=== PATIENT | male | born 1955 | race Caucasian/White ===

== ENCOUNTER 2018-08-02 07:51 | Emergency (ER) | payer BC ==
[2018-08-02 08:17] VITALS: BP 109/68
--- NOTE | 2018-08-02 08:49 | RAD ---
HISTORY: left foot pain COMPARISONS: None VIEWS: 3 , Frontal, lateral, and oblique views of the left foot FINDINGS: BONE DENSITY: Normal. BONES: There is no displaced fracture. There are small posterior and plantar calcaneal enthesophytes. 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 ALIGNMENT: There is no dislocation. SOFT TISSUES: Unremarkable. OTHER FINDINGS: None. IMPRESSION: MILD DEGENERATIVE CHANGES. NO ACUTE OSSEOUS INJURY. IF SYMPTOMS PERSIST, RECOMMEND REPEAT IMAGING.
--- NOTE | 2018-08-02 08:59 | UC ---
Lower Extremity/Ankle HPI - HPI Summary HPI Summary: left foot pain x 2 days + redness, swelling of the left foot, woke up with these symptoms no known injury ,no hx of gout no fever, no chills - History of Current Complaint Chief Complaint: UCLowerExtremity Stated Complaint: LEFT FOOT/ANKLE COMPLAINT Time Seen by Provider: 08/02/18 08:05 Hx Obtained From: Patient Onset/Duration: Gradual Onset, Lasting Days - 2, Still Present Severity Initially: Moderate Severity Currently: Moderate Pain Intensity: 1 Aggravating Factor(s): Standing, Ambulation Alleviating Factor(s): Rest, Elevation Able to Bear Weight: Yes - Allergies/Home Medications Allergies/Adverse Reactions: Allergies Allergy/AdvReac Type Severity Reaction Status Date / Time No Known Allergies Allergy Verified 08/02/18 08:10 PMH/Surg Hx/FS Hx/Imm Hx Previously Healthy: Yes - Surgical History Surgical History: Yes Surgery Procedure, Year, and Place: appy, gallbladder. hernia - Family History Known Family History: Positive: Hypertension - Social History Alcohol Use: Occasionally Alcohol Amount: once/month Substance Use Type: None Smoking Status (MU): Never Smoked Tobacco Review of Systems Constitutional: Negative Skin: Negative Eyes: Negative ENT: Negative Respiratory: Negative Cardiovascular: Negative Is Patient Immunocompromised?: No All Other Systems Reviewed And Are Negative: Yes Physical Exam Triage Information Reviewed: Yes Appearance: Well-Appearing, No Pain Distress, Well-Nourished Vital Signs: Initial Vital Signs Temp 97.7 F 08/02/18 08:11 Pulse 64 08/02/18 08:11 Resp 16 08/02/18 08:11 BP 109/68 08/02/18 08:11 Pulse Ox 98 08/02/18 08:11 Vital Signs Reviewed: Yes Eyes: Positive: Conjunctiva Clear ENT: Positive: Normal ENT inspection, Hearing grossly normal, Pharynx normal Neck: Positive: Supple, Nontender, No Lymphadenopathy Respiratory: Positive: Chest non-tender, Lungs clear, Normal breath sounds Cardiovascular: Positive: RRR, No Murmur, Pulses Normal Abdominal Exam: Normal Skin: Positive: Other - left foot: + swelling, + erythema, tender to touch, Diagnostics - Laboratory Diagnostic Studies Completed/Ordered: xray left foot: IMPRESSION: MILD DEGENERATIVE CHANGES. NO ACUTE OSSEOUS INJURY. IF SYMPTOMS PERSIST, RECOMMEND REPEAT. IMAGING. Lower Extremity Course/Dx - Differential Dx/Diagnosis Provider Diagnoses: cellulitis left foot Discharge - Sign-Out/Discharge Documenting (check all that apply): Patient Departure All imaging exams completed and their final reports reviewed: Yes - Discharge Plan Condition: Stable Disposition: HOME Prescriptions: Cephalexin CAP* [Keflex CAP*] 500 mg PO TID #30 cap Patient Education Materials: Cellulitis (ED) Referrals: Mariella Cleary MD [Primary Care Provider] - 5 Days - Billing Disposition and Condition Condition: STABLE Disposition: Home
== END 2018-08-02 08:56 | disposition home or self-care (01) ==
LOC: UCCORT 07:51
DX: L03.116 Cellulitis of left lower limb (principal)
CPT/HCPCS: 99212; G0463

== ENCOUNTER 2021-04-29 10:52 | Observation (INO) ==
[~2021-04-29 10:52] MED LIST: Buffered Lidocaine 1% SYRIN 1 ml INTRADERM ONE; Dexamethasone IV 4 MG/ML VIAL 1 ml VIAL ONE; Glycopyrrolate IV 0.2 MG/ML 1 ML VIAL ONE; Lactated Ringers 1000 ml BAG 1,000 ML IV SCH; Lidocaine 2% PF 5 ML VIAL ONE; Midazolam 2 mg/2 ml VIAL 1 mg/ml 2 ml VIAL (2 mg) ONE; Ondansetron 4 mg VIAL 2 MG/ML 2 ml VIAL ONE; Propofol 10 mg/ml 100 ML BTL 100 ML ONE; fentaNYL 100 mcg/2 ml 50 MCG/ML VIAL ONE
[2021-04-29] MEDS ORDERED: Buffered Lidocaine 1% SYRIN 1 ml INTRADERM ONE (11:37)
[2021-04-29] MEDS ORDERED: ceFAZolin 2 GM PREMIX 2 GM/50 ML BAG ONE (11:37)
[2021-04-29] MEDS ORDERED: Glycopyrrolate IV 0.2 MG/ML 1 ML VIAL ONE (13:46)
[2021-04-29] MEDS ORDERED: Ondansetron 4 mg VIAL 2 MG/ML 2 ml VIAL IV PRN (14:39)
[2021-04-29] MEDS ORDERED: diPHENhydraMINE IV 50 MG/ML 1 ml VIAL (BENADRYL) IV PRN (14:39)
[2021-04-29] MEDS ORDERED: diPHENhydraMINE 25 mg TAB PO PRN (14:39)
[2021-04-29] MEDS ORDERED: Lactulose 30 ml UDC PO PRN (14:39)
[2021-04-29] MEDS ORDERED: oxyCODONE/Acetamin 5/325 mg TAB PO PRN (14:39)
[2021-04-29] MEDS ORDERED: Morphine 2 MG/ML SYRINGE IV PRN (14:39)
[2021-04-29] MEDS ORDERED: Magnesium Hydroxide LIQ 30 ML UDC PO PRN (14:39)
[2021-04-29] MEDS ORDERED: Ondansetron ODT 4 mg TAB 4 MG TAB PO PRN (14:39)
[2021-04-29] MEDS ORDERED: Phenylephrine IV 10 MG/ML 1 ml VIAL ONE (15:11)
[2021-04-29] MEDS ORDERED: oxyCODONE/Acetamin 5/325 mg TAB ONE (15:52)
[2021-04-29] MEDS ORDERED: fentaNYL 100 mcg/2 ml 50 MCG/ML VIAL IV PRN (15:53)
[2021-04-29] MEDS ORDERED: fentaNYL 100 mcg/2 ml 50 MCG/ML VIAL ONE (16:22)
[2021-04-29] MEDS: Lactated Ringers 1000 ml BAG 1,000 ML IV SCH (18:00)
[2021-04-29] MEDS: Magnesium Hydroxide LIQ 30 ML UDC PO SCH (21:41)
[2021-04-29] MEDS: ceFAZolin 1 GM ADVAN 1 GM in NS 0.9% 50 ML 50 ML IVPB SCH (21:42)
[2021-04-30] MEDS: Lactated Ringers 1000 ml BAG 1,000 ML IV SCH (04:37)
[2021-04-30] MEDS: ceFAZolin 1 GM ADVAN 1 GM in NS 0.9% 50 ML 50 ML IVPB SCH ×2 (06:21→12:53)
[2021-04-30 06:30] LABS: Hematocrit 34 % (42-52); Hemoglobin 11.8 g/dL (14.0-18.0); Platelet Count 172 10^3/uL (150-450)
[2021-04-30 06:51] LABS: Calcium 8.4 mg/dL (8.6-10.3); EGFR African American 92.1 (>60); EGFR Non-African American 76.1 (>60); Potassium 4.3 mmol/L (3.5-5.0)
[2021-04-30] MEDS: Magnesium Hydroxide LIQ 30 ML UDC PO SCH (07:35)
[2021-04-30] MEDS ORDERED: Vitamin THERAPEUTIC TAB PO SCH (09:00)
[2021-04-30 11:52] VITALS: BP 94/58
== END 2021-04-30 14:20 | disposition home or self-care (01) ==
LOC: SSU 10:52 → OR 10:52
PROVIDERS: ADMIT Orthopaedic Surgery Adult Reconstructive Orthopaedic Surgery; ATTEND Orthopaedic Surgery Adult Reconstructive Orthopaedic Surgery